=== PATIENT | female | born 1945 | race Asian ===

== ENCOUNTER → 2016-11-25 | Outpatient (CLI) | payer MEDICAID, OTHER | END | disposition home or self-care (01) | LOC: RADPV 09:11 | PROVIDERS: ATTEND Internal Medicine | DX: M17.11 Unilateral primary osteoarthritis, right knee (principal) ==

== ENCOUNTER 2023-03-20 07:27 | Emergency (ER) | payer MEDICAID, MEDICARE, OTHER ==
[~2023-03-20] VITALS: Ht 149.9 cm; Wt 58.6 kg
[2023-03-20 07:31] VITALS: TEMP 98.5
[2023-03-20] MEDS ORDERED: CHOL100062 PO (07:31)
[2023-03-20] MEDS ORDERED: AMLO5TAB66 PO (07:31)
[2023-03-20] MEDS ORDERED: BISO1TAB98 PO (07:31)
[2023-03-20] MEDS ORDERED: ATOR10TA69 PO (07:31)
[2023-03-20] MEDS ORDERED: DICL100G60 TP (07:31)
[2023-03-20] MEDS ORDERED: RALO60TA13 PO (07:31)
[2023-03-20] MEDS ORDERED: LOSA1TAB42 PO (07:31)
[2023-03-20] MEDS ORDERED: TraMADol HCL 50 MG TABLET PO ONE ×2 (08:30→14:15)
[2023-03-20 09:22] LABS: BASOPHILS % (AUTO) 0.2 % (0.0-2.0); EOSINOPHILS % (AUTO) 0.3 % (1.0-6.0); HEMATOCRIT 33.6 % (36-46); HEMOGLOBIN 11.7 g/dL (12.0-16.0); LYMPHOCYTES # (AUTO) 1.2 K/uL (1.0-4.8); LYMPHOCYTES % (AUTO) 8.3 % (22.0-44.0); MEAN CORPUSCULAR HEMOGLOBIN 31.2 pg (26.0-34.0); MEAN CORPUSCULAR HGB CONC 34.8 G/dL (31.0-37.0); MEAN CORPUSCULAR VOLUME 90 fL (80-100); MONOCYTES # (AUTO) 0.7 K/uL (0.1-1.0); MONOCYTES % (AUTO) 4.7 % (2.0-9.0); NEUTROPHILS # (AUTO) 12.3 K/uL (1.8-7.7); PLATELET COUNT (AUTO) 231 K/uL (150-450); RED BLOOD CELL COUNT(AUTO) 3.74 MIL/uL (4.00-5.20)
[2023-03-20 09:23] LABS: NEUTROPHILS % (AUTO) 86.5 % (40.0-70.0)
[2023-03-20 09:30] LABS: CALCIUM, TOTAL 9.5 mg/dL (8.8-10.5); CREATININE 0.95 mg/dL (0.60-1.30); POTASSIUM 3.3 mmol/L (3.5-5.1)
[2023-03-20 09:36] LABS: ALBUMIN 3.7 g/dL (3.4-5.0); BILIRUBIN,TOTAL 0.6 mg/dL (0.1-1.0); TOTAL PROTEIN, SERUM 7.3 g/dL (6.4-8.2)
[2023-03-20] MEDS ORDERED: LIDOCAINE 1% 10 ML VIAL IM ONE (11:15)
[2023-03-20] MEDS ORDERED: BUPIVACAINE HCL/PF 0.5% 10 ML VIAL SQ ONE (11:15)
[2023-03-20 14:59] LABS: APPEARANCE,URINE CLEAR (CLEAR); BILIRUBIN,URINE NEGATIVE (NEGATIVE); GLUCOSE, URINE (UA) NEGATIVE (NEGATIVE); KETONES,URINE NEGATIVE (NEGATIVE); LEUKOCYTE ESTERASE ,URINE MODERATE (NEGATIVE); NITRATE,URINE NEGATIVE (NEGATIVE); OCCULT BLOOD,URINE NEGATIVE (NEGATIVE); PH,URINE 6.5 (5.0-8.0); PROTEIN,URINE NEGATIVE (NEGATIVE); SPECIFIC GRAVITIY, URINE 1.012 (1.003-1.030); UROBILINOGEN,URINE <=1.0 mg/dL (<=1.0)
[2023-03-20 15:10] VITALS: BP 125/62; PULSE 76; RESP 16
[2023-03-20 15:39] LABS: BACTERIA,URINE Many /HPF (None Seen); RBC,URINE None Seen /HPF (0-2)
== END 2023-03-20 15:33 | disposition home or self-care (01) ==
LOC: EMS 07:27
DX: S63.124A Dislocation of interphalangeal joint of right thumb, initial encounter (principal); S00.31XA Abrasion of nose, initial encounter; I10 Essential (primary) hypertension; W01.0XXA Fall on same level from slipping, tripping and stumbling without subsequent striking against object, initial encounter; Y93.89 Activity, other specified; Y92.89 Other specified places as the place of occurrence of the external cause; Y99.8 Other external cause status
CPT/HCPCS: 99284; 70450; 26770; 80053; 81001; 85025; 36415; 87086; 87186; 71101; 73130; 73140; 70486; 72125; J3490 ×2